=== PATIENT | female | born 1975 | race African-American/Black ===

== ENCOUNTER 2018-02-05 06:45 | Emergency (ER) | payer MEDICAID ==
[~2018-02-05] VITALS: Ht 167.6 cm; Wt 132.0 kg
[2018-02-05] MEDS ORDERED: PREDNISONE 20MG TABLET PO STA (07:23)
[2018-02-05] MEDS ORDERED: ALBUTEROL (0.083%) 2.5MG/3ML NEB HHN STA (07:23)
[2018-02-05] MEDS ORDERED: IPRATROPIUM BROMIDE (0.02%) 0.5MG/2.5ML NEB HHN STA (07:23)
[2018-02-05] MEDS ORDERED: ACETAMINOPHEN 325MG TABLET PO ONE (07:30)
[2018-02-05 08:58] VITALS: BP 150/69
== END 2018-02-05 09:44 | disposition home or self-care (01) ==
LOC: ER 07:53
DX: H66.92 Otitis media, unspecified, left ear (principal); J45.901 Unspecified asthma with (acute) exacerbation; B34.9 Viral infection, unspecified; I10 Essential (primary) hypertension; J02.9 Acute pharyngitis, unspecified; R07.89 Other chest pain; Z98.890 Other specified postprocedural states
CPT/HCPCS: 71045; 81025; 94640; 99283; J7512; J7611

== ENCOUNTER 2019-09-02 06:29 | Emergency (ER) | payer MEDICAID, OTHER ==
[~2019-09-02] VITALS: Ht 168.9 cm; Wt 135.1 kg
[2019-09-02] MEDS ORDERED: KETOROLAC 60MG/2ML VIAL IM ONE (08:00)
[2019-09-02] MEDS ORDERED: ACETAMINOPHEN WITH CODEINE 300/30MG TABLET PO ONE (08:00)
[2019-09-02] MEDS ORDERED: CEPHALEXIN 250MG CAPSULE PO ONE (08:00)
[2019-09-02 08:37] VITALS: BP 149/101
== END 2019-09-02 08:40 | disposition home or self-care (01) ==
LOC: ER 06:29
DX: L03.317 Cellulitis of buttock (principal); J45.909 Unspecified asthma, uncomplicated; I10 Essential (primary) hypertension; Z98.890 Other specified postprocedural states; Z90.49 Acquired absence of other specified parts of digestive tract
CPT/HCPCS: 96372; 99283; J1885